=== PATIENT | male | born 1955 | race Caucasian/White ===

== ENCOUNTER 2022-02-27 09:50 | Emergency (ER) | payer OTHER, MEDICARE ==
[~2022-02-27] VITALS: Ht 185.4 cm; Wt 101.2 kg
[~2022-02-27 09:50] MED LIST: AMOXICILLIN/CL875 MG PO; CIPROFLOXACN500 MG PO; LISINOPRIL/HYDR1 TA1 PO; METFORMIN HYD1000 MG; SIMVASTATIN80 MG PO
[2022-02-27] MEDS ORDERED: LISINOP/HCTZ1 TA2 PO (10:08)
[2022-02-27 10:38] LABS: HEMATOCRIT 36.6 % (39.0-50.0); HEMOGLOBIN 12.3 g/dl (14.0-18.0); IMMATURE GRANULOCYTES 0.3 % (0.0-5.0); MEAN CORPUSCULAR HGB 29.6 pG CALC (26.0-32.0); MEAN CORPUSCULAR HGB CONC 33.6 g/dL CAL (32.0-36.0); NEUT# 5.27 thou/uL (1.82-7.42); RED BLOOD COUNT 4.16 mill/uL (4.70-6.10); RED CELL DISTRI WIDTH 13.1 % (11.5-15.5)
[2022-02-27 10:49] LABS: ALBUMIN 4.2 g/dL (3.2-5.0); ALKALINE PHOSPHATASE 56 u/l (38-126); ANION GAP 12 (6-22 (CALC)); BUN 10 mg/dL (8-23); BUN/CREATININE RATIO 18 (12-20 (CALC)); CARBON DIOXIDE 25 mmol/l (22-30); CHLORIDE 95 mmol/l (95-108); CREATININE 0.6 mg/dL (0.7-1.3); GFR > 60 ML/MIN (>=60 (CALC)); GFR FOR AFR.AMER. > 60 ML/MIN (>=60 (CALC)); POTASSIUM 3.8 mmol/l (3.5-5.1); SGOT/AST 24 u/l (19-48); SODIUM 128 mmol/l (137-146); TOTAL PROTEIN 7.2 g/dL (6.3-8.2)
[2022-02-27] MEDS ORDERED: LASIX 20 MG TAB20 MG PO (13:41)
[2022-02-27] MEDS ORDERED: K-TAB20 MEQ PO (13:41)
[2022-02-27 13:48] VITALS: BP 131/89
== END 2022-02-27 14:02 | disposition home or self-care (01) | DRG 189 ==
LOC: ED 09:50
PROVIDERS: Internal Medicine
DX: J81.1 Chronic pulmonary edema (principal); I10 Essential (primary) hypertension; E11.9 Type 2 diabetes mellitus without complications; E78.5 Hyperlipidemia, unspecified; F17.290 Nicotine dependence, other tobacco product, uncomplicated; Z79.84 Long term (current) use of oral hypoglycemic drugs
CPT/HCPCS: Q9967

== ENCOUNTER 2024-12-07 10:39 | Emergency (ER) | payer OTHER, MEDICARE ==
[~2024-12-07] VITALS: Ht 185.4 cm; Wt 99.0 kg
[2024-12-07] VITALS (22 sets, daily range): BP systolic 63–150; BP diastolic 44–106
[~2024-12-07 10:39] MED LIST changes: +ASPIRIN81 MG PO; +CARVEDILOL6.25 MG PO; +ENTRESTO 97-1031 TAB; +IPRATROPIUM BROMIDE; +JARDIANCE25 MG; +K-TAB20 MEQ PO; +LASIX 20 MG TAB20 MG PO; +LASIX40 MG PO; +LISINOP/HCTZ1 TA2 PO; +METFORMIN HYDR850 MG PO; +POTASSIUM CHLO10 MEQ PO; +SIMVASTATIN40 MG PO
[2024-12-07 11:27] LABS: URINE BILIRUBIN - DIPSTICK Negative (NEGATIVE); URINE BLOOD DIPSTICK Small (NEGATIVE); URINE GLUCOSE - DIPSTICK 500 mg/dL (NEGATIVE); URINE KETONE 40 mg/dL (NEGATIVE); URINE LEUK ESTERASE Negative (NEGATIVE); URINE NITRITE - DIPSTICK Negative (Negative); URINE PH 5.5 (4.5-8.0); URINE PROTEIN - DIPSTICK Negative (NEG-TRACE); URINE SPECIFIC GRAVITY 1.015; URINE UROBILINOGEN - DIPSTICK 0.2 E.U./dL (0.2)
[2024-12-07 11:35] LABS: URINE COLOR Yellow
[2024-12-07 11:37] LABS: URINE RBC 0-2 RBC/hpf (0-5)
[2024-12-07 11:53] LABS: BASO% 0.3 % (0-3); EOS% 0.7 % (0-8); IMMATURE GRANULOCYTES 0.1 % (0.0-5.0); LYMPH% 27.9 % (15-41); MEAN CORPUSCULAR HGB 30.7 pG CALC (26.0-32.0); MEAN CORPUSCULAR HGB CONC 32.6 g/dL CAL (32.0-36.0); MONO% 12.9 % (2-13); NEUT# 4.2 thou/uL (1.82-7.42); NEUT% 58.1 % (42-76); RED BLOOD COUNT 4.73 mill/uL (4.70-6.10); RED CELL DISTRI WIDTH 12.6 % (11.5-15.5)
[2024-12-07 11:54] LABS: HEMATOCRIT 44.5 % (39.0-50.0); HEMOGLOBIN 14.5 g/dl (14.0-18.0); MEAN CELL VOLUME 94.1 fL CALC (80.0-100.0)
[2024-12-07 12:11] LABS: ALBUMIN 4.3 g/dL (3.2-5.0); BILIRUBIN, TOTAL 0.9 mg/dL (0.2-1.3); CREATININE 0.8 mg/dL (0.7-1.3); TOTAL PROTEIN 7.4 g/dL (6.3-8.2)
[2024-12-07] MEDS ORDERED: KETOROLAC TROMETHAMINE 15 MG/ML SDV IV STA (12:31)
[2024-12-07] MEDS ORDERED: LABETALOL HCL 20 MG/ 4 ML CARTRG IV ONE (14:30)
== END 2024-12-07 16:40 | disposition short-term general hospital (02) | DRG 301 ==
LOC: ED 10:39
PROVIDERS: Family Medicine
DX: I71.43 Infrarenal abdominal aortic aneurysm, without rupture (principal); K43.9 Ventral hernia without obstruction or gangrene; I86.1 Scrotal varices; E11.9 Type 2 diabetes mellitus without complications; I10 Essential (primary) hypertension; E78.5 Hyperlipidemia, unspecified; Z79.84 Long term (current) use of oral hypoglycemic drugs
CPT/HCPCS: J1885; Q9967

== ENCOUNTER 2025-01-25 00:35 | Emergency (ER) | payer MEDICARE ==
[2025-01-25] VITALS (16 sets, daily range): BP systolic 115–154; BP diastolic 67–93
[~2025-01-25] VITALS: Ht 185.4 cm; Wt 86.2 kg
[~2025-01-25 00:35] MED LIST changes: -JARDIANCE25 MG; +JARDIANCE25 MG PO
[2025-01-25] MEDS ORDERED: FUROSEMIDE 40 MG/4 ML SDV IV ONE (00:55)
[2025-01-25 01:13] LABS: BASO% 0.2 % (0-3); EOS% 1.9 % (0-8); IMMATURE GRANULOCYTES 0.6 % (0.0-5.0); LYMPH% 31.2 % (15-41); MEAN CELL VOLUME 88.6 fL CALC (80.0-100.0); MEAN CORPUSCULAR HGB 28.2 pG CALC (26.0-32.0); MEAN CORPUSCULAR HGB CONC 31.8 g/dL CAL (32.0-36.0); MONO% 9.6 % (2-13); NEUT# 5.11 thou/uL (1.82-7.42); NEUT% 56.5 % (42-76); RED BLOOD COUNT 4.04 mill/uL (4.70-6.10); RED CELL DISTRI WIDTH 13.7 % (11.5-15.5)
[2025-01-25 01:15] LABS: HEMATOCRIT 35.8 % (39.0-50.0); HEMOGLOBIN 11.4 g/dl (14.0-18.0)
[2025-01-25 01:28] LABS: ALBUMIN 4.3 g/dL (3.2-5.0); BILIRUBIN, TOTAL 0.8 mg/dL (0.2-1.3); CREATININE 0.9 mg/dL (0.7-1.3); POTASSIUM 4.2 mmol/l (3.5-5.1)
[2025-01-25] MEDS ORDERED: levoFLOXacin 500 MG TAB PO ONE (04:25)
[2025-01-25] MEDS ORDERED: LEVOFLOXACIN750 MG PO (04:37)
[2025-01-25] MEDS ORDERED: AMOX/K CLAV875 M1 PO (04:37)
[2025-01-25] MEDS ORDERED: OXYCODONE HCL10 MG PO (06:28)
[2025-01-25] MEDS ORDERED: PLAVIX75 MG PO (06:29)
[2025-01-25] MEDS ORDERED: GABAPENTIN300 M3 PO (06:31)
[2025-01-28] MEDS ORDERED: DOXYCYCLINE100 MG PO (11:12)
== END 2025-01-25 05:01 | disposition home or self-care (01) ==
LOC: ED 00:35
PROVIDERS: Family Medicine
DX: J18.9 Pneumonia, unspecified organism (principal); I11.0 Hypertensive heart disease with heart failure; I50.9 Heart failure, unspecified; E11.9 Type 2 diabetes mellitus without complications; E78.5 Hyperlipidemia, unspecified; Z79.84 Long term (current) use of oral hypoglycemic drugs; Z95.810 Presence of automatic (implantable) cardiac defibrillator; Z20.822 Contact with and (suspected) exposure to COVID-19
CPT/HCPCS: J0696; J1940; Q9967